=== PATIENT | male | born 1955 | race Hispanic/Latino ===

== ENCOUNTER 2024-08-20 18:42 | Emergency (ER) | payer OTHER ==
[2024-08-20] MEDS ORDERED: ASPIRIN 81 MG CHEWABLE TABLET ONE (19:44)
[2024-08-20] MEDS ORDERED: METOPROLOL XL 50 MG TAB PO ONE (19:44)
[2024-08-20] MEDS ORDERED: ENOXAPARIN 100 MG/ML SYR SQ ONE (19:45)
[2024-08-20] MEDS ORDERED: FAMOTIDINE 20 MG/2 ML VIAL IV ONE (19:45)
--- NOTE | 2024-08-20 20:02 | RAD REPORT ---
EXAMINATION: ONE VIEW CHEST XR CLINICAL INDICATION: CHEST PAIN TECHNIQUE: Frontal chest projection is submitted. Examination is limited by patient positioning and t echnique. COMPARISON: No prior exam. FINDINGS: The lungs are well inflated and clear. The heart is normal in size. No displaced fractures identified . IMPRESSION: No acute intrathoracic abnormalities.
[2024-08-20 20:14] LABS: Absolute Eosinophils 0.1 K/uL (0-0.5); Absolute Lymphocytes (CBC) 1.7 K/uL (0.7-4.9); Absolute Monocytes 0.4 K/uL (0.1-1.3); Absolute Neutrophil 2.8 K/uL (1.8-8.0); Basophils % 0.4 % (0-1.3); Eosinophils % 1.2 % (0-4.4); Hematocrit 40.2 % (39.6-49.0); Hemoglobin 14.5 g/dL (13.6-17.9); Lymphocytes % 33.4 % (15.3-44.8); MCH 32.4 pg (27.0-35.0); MCV 90.2 fL (80-100); MPV 7.7 fL (7.6-11.3); Monocytes % 7.6 % (3.3-12.3); Neutrophils % 57.4 % (41.7-73.7); Nucleated Red Blood Cells % 0.1 % (0-0); Platelets 129 thou/uL (152-406); RBC Red Blood Cell Count 4.46 M/uL (4.33-5.43); Red Cell Distribution Width 13.9 % (12.1-15.2)
[2024-08-20 20:28] LABS: D-Dimer 0.353 FEUug/mL (0-0.500); PT Prothrombin Time 11.1 SECONDS (10-13.0); Protime INR 0.97
[2024-08-20 20:35] LABS: Anion Gap 10.3 mEq/L (5.0-15.0); Potassium 3.3 mEq/L (3.5-5.1)
[2024-08-20 20:36] LABS: Lipase 56 U/L (13-75); NT PRO-BNP 283 pg/mL (<125)
[2024-08-20 20:38] LABS: Specific Gravity 1.012 (1.005-1.030); Sqamous Epithelial None Seen /HPF (None Seen); Urine Bacteria None Seen /HPF (<20); Urine Bilirubin NEGATIVE (Negative); Urine Blood Negative (Negative); Urine Clarity Clear (Clear); Urine Color Light-Yellow (Yellow); Urine Crystals Unidentified Few /HPF (None Seen); Urine Glucose NEGATIVE (Negative); Urine Ketones NEGATIVE (Negative); Urine Micro Reflex YN NO BILL MICROSCOPIC; Urine Mucus Slight /HPF (None Seen); Urine Nitrite NEGATIVE (Negative); Urine Protein NEGATIVE (Negative); Urine RBC <5 /HPF (None Seen); Urine Urobilinogen 1+ (Normal); Urine WBC <5 /HPF (<5); Urine pH 7.5 (5.0-7.0)
--- NOTE | 2024-08-20 20:51 | ER ---
Nurse's Notes [facility] Name: Santosh Mullins Age: 68 yrs Sex: Male : 1955 Arrival Date: 08/20/2024 Time: 18:42 Bed 2 Private MD: Diagnosis: Unstable angina;Essential (primary) hypertension;Obesity, unspecified;Non ST elevation [place] Presentation: 08/20 18:54 Chief complaint: Patient states: Intermittent left side chest pain since this morning, jl7 rated 2/10 now, 10/10 this morning. Coronavirus screen: At this time, the client does not indicate any symptoms associated with coronavirus-19. Ebola Screen: No symptoms or risks identified at this time. Initial Sepsis Screen: Does the patient meet any 2 criteria? No. Patient's initial sepsis screen is negative. Does the patient have a suspected source of infection? No. Patient's initial sepsis screen is negative. Risk Assessment: Do you want to hurt yourself or someone else? Patient reports no desire to harm self or others. Onset of symptoms was August 20, 2024. 18:54 Method Of Arrival: Ambulatory [facility] 18:54 Acuity: SHAYY 2 jl7 Triage Assessment: 18:55 General: Appears in no apparent distress. uncomfortable, Behavior is calm, cooperative, jl7 appropriate for age. Pain: Complains of pain in anterior aspect of left upper chest Pain currently is 2 out of 10 on a pain scale. at worst was 10 out of 10 on a pain scale. Quality of pain is described as burning. Historical: - Allergies: 18:55 No Known Allergies; jl7 - PMHx: 18:55 Hypertensive disorder; ADHD; jl7 - PSHx: 18:55 None; jl7 - Immunization history:: Adult Immunizations unknown. - Infectious Disease History:: Denies. - Social history:: Smoking status: Patient denies any tobacco usage or history of. - Family history:: not pertinent. Screenin:42 [facility] ED Fall Risk Assessment (Adult) History of falling in the last 3 months, dd2 including since admission No falls in past 3 months (0 pts) Confusion or Disorientation No (0 pts) Intoxicated or Sedated No (0 pts) Impaired Gait No (0 pts) Mobility Assist Device Used No (0 pt) Altered Elimination No (0 pt) Score/Fall Risk Level 0 - 2 = Low Risk Oriented to surroundings, Maintained a safe environment, Educated pt \T\ family on fall prevention, incl call for assistance when getting out of bed, Assessed \T\ reinforced patient's understanding of fall precautions, Hourly rounding (assess needs \T\ fall precautionary measures) done. Abuse screen: Denies threats or abuse. Denies injuries from another. Nutritional screening: No deficits noted. Tuberculosis screening: No symptoms or risk factors identified. Assessment: 20:22 Reassessment: Patient appears in no apparent distress at this time. No changes from kl previously documented assessment. General: Appears in no apparent distress. comfortable, Behavior is calm, cooperative, Pt moved to ER room 2. Care transferred to Julita FLORENTINO. 20:42 General: Appears in no apparent distress. comfortable, Behavior is calm, cooperative, dd2 appropriate for age. Pain: Complains of pain in anterior aspect of left upper chest Pain does not radiate. Pain currently is 0 out of 10 on a pain scale. Neuro: Bullock Agitation-Sedation Scale (RASS): 0 - Alert and Calm Level of Consciousness is awake, alert, obeys commands, Oriented to person, place, time, situation, Appropriate for age. Cardiovascular: Reports chest pain, intermittent JVD is absent Patient's skin is warm and dry. Respiratory: Airway is patent Respiratory effort is even, unlabored, Respiratory pattern is regular, symmetrical, Breath sounds are clear bilaterally. GI: No deficits noted. Abdomen is non-distended, obese, Abd is soft and non tender X 4 quads. : No deficits noted. No signs and/or symptoms were reported regarding the genitourinary system. EENT: No deficits noted. No signs and/or symptoms were reported regarding the EENT system. Derm: No deficits noted. No signs and/or symptoms reported regarding the dermatologic system. Skin is healthy with good turgor, Skin is dry, Skin is normal, Skin temperature is warm. Musculoskeletal: No deficits noted. No signs and/or symptoms reported regarding the musculoskeletal system. Circulation, motion, and sensation intact. Range of motion: intact in all extremities. 21:34 Reassessment: ATTEMPTED TO CALL REPORT TO [facility] CCU X2. dd2 21:42 Reassessment: ATTEMPTED TO CALL CCU, 3RD ATTEMPT. dd2 21:52 Reassessment: ATTEMPTED TO CALL REPORT TO CCU 4TH ATTEMPT. REPORT GIVEN TO EMS, SBAR dd2 SENT. 21:59 Reassessment: REPORT CALLED TO M[facility]HEL D[facility]. dd2 Vital Signs: 18:54 BP 171 / 100; Pulse 82; Resp 17; Temp 97; Pulse Ox 100% ; Weight 96.62 kg; Height 5 ft. jl7 5 in. ; Pain 2/10; 20:37 BP 167 / 101; Pulse 73; Resp 16; Pulse Ox 98% on R/A; dd2 21:00 BP 181 / 102; Pulse 73; Resp 17; Pulse Ox 97% on R/A; dd2 21:13 BP 166 / 98; Pulse 71; Resp 16; Pulse Ox 97% on R/A; dd2 21:42 BP 158 / 92; Pulse 58; Resp 16; Pulse Ox 97% on R/A; dd2 18:54 Body Mass Index 35.44 (96.62 kg, 165.1 cm) jl7 18:54 Pain Scale: Adult jl7 Bernadette Coma Score: 20:22 Eye Response: spontaneous(4). Motor Response: obeys commands(6). Verbal Response: suri oriented(5). Total: 15. 20:42 Eye Response: spontaneous(4). Motor Response: obeys commands(6). Verbal Response: dd2 oriented(5). Total: 15. ED Course: 18:45 Patient arrived in ED. im 18:51 Eugene Loya MD is Attending Physician. suri 18:55 Triage completed. jl7 18:55 Arm band placed on right wrist. jl7 19:35 XRAY Chest (1 view) In Process Unspecified. EDMS 19:59 Initial lab(s) drawn, by me, sent to lab. Inserted saline lock: 20 gauge in right rk3 antecubital area, using aseptic technique. Blood collected. Flushed with 10 mL NS. 20:24 JULITA ROLAND RN is Primary Nurse. dd2 20:42 Patient has correct armband on for positive identification. Bed in low position. Call dd2 light in reach. Side rails up X 1. Client placed on continuous cardiac and pulse oximetry monitoring. NIBP monitoring applied. library monitor on. Door closed. Noise minimized. Pillow given. Verbal reassurance given. 20:42 No provider procedures requiring assistance completed. Patient maintains SpO2 dd2 saturation greater than 95% on room air. 20:45 DR LOYA INITIATED TRANSFER WITH [facility]. WAS TOLD THERE WOULD POSSIBLY NOT BE A [facility] BED BUT THEY WOULD TRY. 22:00 Provided Education on: TRANSFER INSTRUCTIONS. dd2 22:00 Patient transferred, IV remains in place. dd2 08/21 01:13 PT WAS ACCEPTING TO [facility] - CCU. ACCEPTING DR ALVARADO. ACCEPTING DR. debra WILLIAMSON, N \T\ [id number]. NUMBER FOR NURSE TO NURSE [phone]. Administered Medications: 08/20 20:05 Drug: Metoprolol PO 50 mg PO once Route: PO; kl 20:25 Follow up: Response: No adverse reaction dd2 20:05 Drug: Enoxaparin Sub-Q 1 mg/kg Sub-Q once Route: Sub-Q; Site: abdomen; kl 20:25 Follow up: Response: No adverse reaction dd2 20:05 Drug: Aspirin PO Chewable Tablet 324 mg PO once; 81 mg tablets x 4 Route: PO; kl 20:25 Follow up: Response: No adverse reaction dd2 20:06 Drug: Famotidine IVP 20 mg IVP once; dilute with 10 mL 0.9% NaCl; give over 2 minutes kl Route: IVP; Site: right antecubital; 20:25 Follow up: Response: No adverse reaction dd2 21:13 Drug: Ondansetron IVP 4 mg IVP once; over 2 minutes Route: IVP; Site: right antecubital;dd2 21:28 Follow up: Response: No adverse reaction dd2 21:14 Drug: Potassium PO Effervescent Tablet 50 mEq PO once; dissolve in 4 ounces of water or dd2 juice Route: PO; 21:48 Follow up: Response: No adverse reaction dd2 21:14 Drug: Atorvastatin PO 40 mg PO once Route: PO; dd2 21:48 Follow up: Response: No adverse reaction dd2 21:14 Drug: morphine IVP or IV 2 mg IVP once over 4 mins Route: IVP; Infused Over: 4 mins; dd2 Site: right antecubital; 21:38 Follow up: Response: No adverse reaction dd2 21:15 Drug: Metoprolol IVP 5 mg IVP once; Hold for SBP <100 or HR <60. Route: IVP; Site: dd2 right antecubital; 21:30 Follow up: Response: No adverse reaction dd2 21:15 Drug: Clopidogrel PO 300 mg PO once Route: PO; dd2 21:48 Follow up: Response: No adverse reaction dd2 21:46 Not Given (Patient Refused): morphineor iv 2 mg IVP once over 4 mins dd2 21:46 Not Given (Physician Discretion): metoprolol2.5 mg IVP once; Hold for SBP <100 or HR dd2 <60. 21:46 Not Given (Physician Discretion): metoprolol2.5 mg IVP once; Hold for SBP <100 or HR dd2 <60. Medication: 20:42 VIS not applicable for this client. dd2 Outcome: 20:50 ER care complete, transfer ordered by MD. mccord 22:00 Transferred by ground EMS to [facility], Transfer form completed. dd2 22:00 Condition: stable 22:00 Instructed on the need for transfer, 22:00 Demonstrated understanding of instructions, 22:01 Patient left the ED. dd2 Signatures: Dispatcher [employer] Soledad Hernandez, RN RN Eugene Monet MD MD cha Leal, Jahala, RN RN jl7 Jacqui Santoyo Kelsey Maroul kmf DAVIS, DIANA, RN RN dd2 Ghassan Cabrera rk3
--- NOTE | 2024-08-20 20:51 | EDPHYS ---
Physician Documentation [facility] Name: Santosh Mullins Age: 68 yrs Sex: Male : 1955 Arrival Date: 08/20/2024 Time: 18:42 Bed 2 Private MD: SOFIA Physician Eugene Marcano HPI: 08/20 20:18 This 68 yrs old Male presents to ER via Ambulatory with complaints of Chest suri burn. 20:18 The patient or guardian reports chest pain that is located primarily in the anterior suri chest wall, left. Onset: this morning. The patient has elevated blood pressure and discovered this at home. Onset: The symptoms/episode began/occurred this morning. Modifying factors: The symptoms are aggravated by activity, The symptoms are alleviated by remaining still. The pain does not radiate. Associated signs and symptoms: The patient has no apparent associated signs or symptoms. The chest pain is described as burning. Modifying factors: The symptoms are alleviated by nothing. the symptoms are aggravated by nothing. Historical: - Allergies: 18:55 No Known Allergies; jl7 - PMHx: 18:55 Hypertensive disorder; ADHD; jl7 - PSHx: 18:55 None; jl7 - Immunization history:: Adult Immunizations unknown. - Infectious Disease History:: Denies. - Social history:: Smoking status: Patient denies any tobacco usage or history of. - Family history:: not pertinent. ROS: 20:18 Constitutional: Negative for fever, chills, and weight loss, Eyes: Negative for injury, suri pain, redness, and discharge, ENT: Negative for injury, pain, and discharge, Neck: Negative for injury, pain, and swelling, Respiratory: Negative for shortness of breath, cough, wheezing, and pleuritic chest pain, Abdomen/GI: Negative for abdominal pain, nausea, vomiting, diarrhea, and constipation, Back: Negative for injury and pain, : Negative for injury, bleeding, discharge, and swelling, MS/Extremity: Negative for injury and deformity, Skin: Negative for injury, rash, and discoloration, Neuro: Negative for headache, weakness, numbness, tingling, and seizure, Psych: Negative for depression, anxiety, suicide ideation, homicidal ideation, and hallucinations, Allergy/Immunology: Negative for hives, rash, and allergies, Endocrine: Negative for neck swelling, polydipsia, polyuria, polyphagia, and marked weight changes, Hematologic/Lymphatic: Negative for swollen nodes, abnormal bleeding, and unusual bruising, 20:18 Cardiovascular: Positive for chest pain, of the chest, 20:18 MS/extremity: Negative for acute changes, Exam: 20:20 Constitutional: This is a well developed, well nourished patient who is awake, alert, suri and in no acute distress. Head/Face: Normocephalic, atraumatic. Eyes: Pupils equal round and reactive to light, extra-ocular motions intact. Lids and lashes normal. Conjunctiva and sclera are non-icteric and not injected. Cornea within normal limits. Periorbital areas with no swelling, redness, or edema. ENT: Nares patent. No nasal discharge, no septal abnormalities noted. Tympanic membranes are normal and external auditory canals are clear. Oropharynx with no redness, swelling, or masses, exudates, or evidence of obstruction, uvula midline. Mucous membranes moist. Neck: Trachea midline, no thyromegaly or masses palpated, and no cervical lymphadenopathy. Supple, full range of motion without nuchal rigidity, or vertebral point tenderness. No Meningismus. Chest/axilla: Normal chest wall appearance and motion. Nontender with no deformity. No lesions are appreciated. Cardiovascular: Regular rate and rhythm with a normal S1 and S2. No gallops, murmurs, or rubs. Normal PMI, no JVD. No pulse deficits. Respiratory: Lungs have equal breath sounds bilaterally, clear to auscultation and percussion. No rales, rhonchi or wheezes noted. No increased work of breathing, no retractions or nasal flaring. Abdomen/GI: Soft, non-tender, with normal bowel sounds. No distension or tympany. No guarding or rebound. No evidence of tenderness throughout. Back: No spinal tenderness. No costovertebral tenderness. Full range of motion. Skin: Warm, dry with normal turgor. Normal color with no rashes, no lesions, and no evidence of cellulitis. MS/ Extremity: Pulses equal, no cyanosis. Neurovascular intact. Full, normal range of motion., bilateral aka Neuro: Awake and alert, GCS 15, oriented to person, place, time, and situation. Cranial nerves II-XII grossly intact. Motor strength 5/5 in all extremities. Sensory grossly intact. Cerebellar exam normal. Normal gait. Psych: Awake, alert, with orientation to person, place and time. Behavior, mood, and affect are within normal limits. 20:20 ECG was reviewed by the Attending Physician. 20:22 ECG was reviewed by the Attending Physician. [facility] Vital Signs: 18:54 BP 171 / 100; Pulse 82; Resp 17; Temp 97; Pulse Ox 100% ; Weight 96.62 kg; Height 5 ft. jl7 5 in. ; Pain 2/10; 20:37 BP 167 / 101; Pulse 73; Resp 16; Pulse Ox 98% on R/A; dd2 21:00 BP 181 / 102; Pulse 73; Resp 17; Pulse Ox 97% on R/A; dd2 21:13 BP 166 / 98; Pulse 71; Resp 16; Pulse Ox 97% on R/A; dd2 21:42 BP 158 / 92; Pulse 58; Resp 16; Pulse Ox 97% on R/A; dd2 18:54 Body Mass Index 35.44 (96.62 kg, 165.1 cm) jl7 18:54 Pain Scale: Adult jl7 [place] Coma Score: 20:22 Eye Response: spontaneous(4). Motor Response: obeys commands(6). Verbal Response: suri oriented(5). Total: 15. 20:42 Eye Response: spontaneous(4). Motor Response: obeys commands(6). Verbal Response: dd2 oriented(5). Total: 15. MDM: 19:01 Medical Screening Exam initiated suri 20:23 Differential diagnosis: abnormal EKG, acute myocardial infarction, acute pericarditis, suri chest wall pain, Cholelithiasis costochondritis, Malignant HTN, CVA, esophagitis, hiatal hernia, pancreatitis, peptic ulcer disease, pericarditis, pleurisy, pneumonia, pulmonary embolus, stable angina, thoracic aortic disection, unstable angina. HEART Score: History: Moderately Suspicious (1), ECG: Non specific repolarization disturbance / LBTB / PM (1), Age: > or = 65 years (2), Risk Factors: > or = 3 Risk factors for atherosclerotic disease (2), [Hypertension] [+ Family HX] [Obesity] Troponin:. The patient was given aspirin in the Emergency Department. SAMEERA Risk Score: 1 - patient's age is greater or equal to 65 years, 1 - Three or more CAD risk factors, 1 - Recent [<24hrs] Severe Angina, TOTAL SCORE = 3. Data reviewed: vital signs, nurses notes, lab test result(s), EKG, radiologic studies, plain films. Consideration of Admission/Observation Patient was admitted/placed on observation. Escalation of care including admission/observation considered. I considered the following discharge prescriptions or medication management in the emergency department Medications were administered in the Emergency Department. See MAR. Independent interpretation of the following test(s) in the Emergency Department EKG: See my EKG interpretation above. Test considered but Not performed: Ultrasound NO 2 D ECHO. Historians other than the Patient: Family Member: MULTILE FAMILY MEMBERS. Care significantly affected by the following chronic conditions: Hypertension, Obesity. Counseling: I had a detailed discussion with the patient and/or guardian regarding the historical points, exam findings, and any diagnostic results supporting the discharge/admit diagnosis, the presence of at least one elevated blood pressure reading (>120/80) during this emergency department visit, lab results, radiology results, the need for further work-up and treatment in the hospital. 21:17 ED course: PURNIMA SAID NO BEDS, TRY OTHERS. [facility] 08/20 18:56 Order name: Basic Metabolic Panel; Complete Time: 20:43 08/20 18:56 Order name: CBC with Diff; Complete Time: 20:16 [facility] 08/20 18:56 Order name: Troponin HS; Complete Time: 20:43 [facility] 08/20 19:16 Order name: PT-INR; Complete Time: 20:43 [facility] 08/20 19:16 Order name: D-Dimer; Complete Time: 20:43 [facility] 08/20 19:16 Order name: Lipase; Complete Time: 20:43 [facility] 08/20 19:16 Order name: UA W/ Microscopic; Complete Time: 20:43 [facility] 08/20 19:16 Order name: BNP; Complete Time: 20:43 [facility] 08/20 20:51 Order name: Lipid Profile [facility] 08/20 18:56 Order name: XRAY Chest (1 view); Complete Time: 20:16 [facility] 08/20 18:56 Order name: EKG; Complete Time: 18:57 [facility] 08/20 18:56 Order name: Cardiac monitoring; Complete Time: 20:25 [facility] 08/20 18:56 Order name: EKG - Nurse/Tech; Complete Time: 18:56 08/20 18:56 Order name: IV Saline Lock; Complete Time: 20:00 [facility] 08/20 18:56 Order name: Labs collected and sent; Complete Time: 20:00 08/20 18:56 Order name: O2 Per Protocol; Complete Time: 20:25 08/20 18:56 Order name: O2 Sat Monitoring; Complete Time: 20: EC:20 Rate is 83 beats/min. Rhythm is regular. QRS [place] is Normal. HI interval is normal. QRS suri interval is normal. QT interval is normal. No Q waves. T waves are Normal. ST Segment is depressed in leads I, aVL, V1, V2, V3, V4, V5, V6. Clinical impression: NSR w/ Non-specific ST/T Changes. Interpreted by me. Reviewed by me. 20:22 Rate is 78 beats/min. Rhythm is regular. QRS [place] is Normal. HI interval is normal. QRS suri interval is normal. QT interval is normal. No Q waves. T waves are Normal. No ST changes noted. Clinical impression: NSR w/ Non-specific ST/T Changes. Interpreted by me. Reviewed by me. Administered Medications: 20:05 Drug: Metoprolol PO 50 mg PO once Route: PO; kl 20:25 Follow up: Response: No adverse reaction dd2 20:05 Drug: Enoxaparin Sub-Q 1 mg/kg Sub-Q once Route: Sub-Q; Site: abdomen; kl 20:25 Follow up: Response: No adverse reaction dd2 20:05 Drug: Aspirin PO Chewable Tablet 324 mg PO once; 81 mg tablets x 4 Route: PO; kl 20:25 Follow up: Response: No adverse reaction dd2 20:06 Drug: Famotidine IVP 20 mg IVP once; dilute with 10 mL 0.9% NaCl; give over 2 minutes kl Route: IVP; Site: right antecubital; 20:25 Follow up: Response: No adverse reaction dd2 21:13 Drug: Ondansetron IVP 4 mg IVP once; over 2 minutes Route: IVP; Site: right antecubital;dd2 21:28 Follow up: Response: No adverse reaction dd2 21:14 Drug: Potassium PO Effervescent Tablet 50 mEq PO once; dissolve in 4 ounces of water or dd2 juice Route: PO; 21:48 Follow up: Response: No adverse reaction dd2 21:14 Drug: Atorvastatin PO 40 mg PO once Route: PO; dd2 21:48 Follow up: Response: No adverse reaction dd2 21:14 Drug: morphine IVP or IV 2 mg IVP once over 4 mins Route: IVP; Infused Over: 4 mins; dd2 Site: right antecubital; 21:38 Follow up: Response: No adverse reaction dd2 21:15 Drug: Metoprolol IVP 5 mg IVP once; Hold for SBP <100 or HR <60. Route: IVP; Site: dd2 right antecubital; 21:30 Follow up: Response: No adverse reaction dd2 21:15 Drug: Clopidogrel PO 300 mg PO once Route: PO; dd2 21:48 Follow up: Response: No adverse reaction dd2 21:46 Not Given (Patient Refused): morphineor iv 2 mg IVP once over 4 mins dd2 21:46 Not Given (Physician Discretion): metoprolol2.5 mg IVP once; Hold for SBP <100 or HR dd2 <60. 21:46 Not Given (Physician Discretion): metoprolol2.5 mg IVP once; Hold for SBP <100 or HR dd2 <60. Disposition: 21:19 Critical Care:. suri Disposition Summary: 08/20/24 20:50 Transfer Ordered Notes: Reason: Higher level of care suri Condition: Fair suri Problem: new suri Symptoms: have improved suri Transfer Location: [facility](08/20/24 21:17) suri Accepting Physician: TO CCU(08/20/24 22:01) dd2 Diagnosis - Unstable angina suri - Essential (primary) hypertension suri - Obesity, unspecified suri - Non ST elevation [place] suri Forms: - Medication Reconciliation Form suri - SBAR form suri Critical care time excluding procedures: 21:19 Critical care time: Bedside Care: 25 minutes, Consultation: 20 minutes, Family suri Intervention: 10 minutes. Total time: 55 minutes Signatures: Dispatcher [employer] Soledad Hernandez RN RN kl Anderson, Corey, MD MD cha Leal, Jahala, RN RN jl7 EDWIN ROLAND RN RN dd2 Corrections: (The following items were deleted from the chart) 18:57 18:57 BASIC METABOLIC PANEL+C.LAB.BRZ ordered. EDMS EDMS 18:57 18:57 CBC+H.LAB.BRZ ordered. EDMS EDMS 18:57 18:57 Troponin High Sensitivity+C.LAB.BRZ ordered. EDMS EDMS 20:51 20:51 LIPID PROFILE+C.LAB.BRZ ordered. EDMS EDMS 21:17 20:50 TO [facility] suri 21:17 20:50 [facility] suri suri 22:01 21:17 TO [facility] dd2
[2024-08-20] MEDS ORDERED: ONDANSETRON 4 MG/2 ML VIAL ONE (20:59)
[2024-08-20] MEDS ORDERED: MORPHINE 2 MG/ML SYR ONE (20:59)
[2024-08-20] MEDS ORDERED: METOPROLOL TARTRATE 5 MG/5 ML INJ IV ONE (21:00)
[2024-08-20] MEDS ORDERED: ATORVASTATIN 40 MG TAB ONE (21:00)
[2024-08-20] MEDS ORDERED: CLOPIDOGREL 75 MG TABLET ONE (21:00)
[2024-08-20] MEDS ORDERED: POTASSIUM 25 MEQ EFFERV TAB ONE (21:00)
[2024-08-20 22:59] VITALS: TEMP 97
[2024-08-20 23:04] VITALS: O2SAT 97
[2024-08-20 23:08] VITALS: BP 158/92
--- NOTE | 2024-08-21 16:26 | EKG ---
Test Date: 2024-08-20 Test Time: 18:53:02 Director Of Physical Security: ASHKAN MEASUREMENT RESULTS: Intervals: Rate: 83 ME: 174 QRSD: 92 QT: 370 QTc: 434 [place]: P: 41 ME: 174 QRS: 25 T: 111 INTERPRETIVE STATEMENTS: Normal sinus rhythm T wave abnormality, consider lateral ischemia Abnormal ECG Compared to ECG 01/18/1999 23:27:00 T-wave abnormality now present Possible ischemia now present Sinus bradycardia no longer present Electronically Signed On 08-21-24 16:25:29 CDT by Mahad Martines
== END 2024-08-20 22:01 | disposition short-term general hospital (02) ==
LOC: ER 18:42
DX: I21.4 Non-ST elevation (NSTEMI) myocardial infarction (principal); I10 Essential (primary) hypertension; E66.9 Obesity, unspecified
CPT/HCPCS: 93005; 85025; 81001; 80048; 36415; 85610; 80061; 85379; 84484; 83690; 83880; 71045; 96375; 96372; 96374; 99285; J1650; J2270; J2405